=== PATIENT | female | born 1970 | race Two or more races ===

== ENCOUNTER 2020-08-28 06:10 | Day surgery (SDC) | payer OTHER ==
[2020-08-28] MEDS ORDERED: NEXIUM20 M1 PO (09:16)
[2020-08-28] MEDS ORDERED: CARAFATE1 GM PO (09:16)
== END 2020-08-28 11:00 | disposition home or self-care (01) ==
LOC: AMB-ENDOS 06:10
PROVIDERS: ATTEND Surgery
DX: D13.1 Benign neoplasm of stomach (principal); Z20.828 Contact with and (suspected) exposure to other viral communicable diseases; K44.9 Diaphragmatic hernia without obstruction or gangrene